=== PATIENT | female | born 1970 | race Caucasian/White ===

== ENCOUNTER → 2020-03-05 15:06 | Outpatient (CLI) | payer OTHER, SELFPAY ==
[2020-03-07 13:57] LABS: Cancer Antigen 125 37.3 U/mL (0.0-38.1)
== END ==
PROVIDERS: Visit Provider Obstetrics & Gynecology
DX: R19.00 Intra-abdominal and pelvic swelling, mass and lump, unspecified site (principal)
CPT/HCPCS: 36415; 86304

== ENCOUNTER 2020-03-12 08:49 | Inpatient (IN) | payer SELFPAY, OTHER ==
--- NOTE | 2020-03-11 17:41 | HP.PCM_ITS ---
History and Physical Date of Admission: 03/12/20 Surgical History and Physical Halie Carmen, a 50 year old female 3 0 1 0 3, presents for MAURO/BSO on 03/12/2020 at 11 :00. -- Large Pelvic Mass -- Halie is here as ref from Dr. Carlie Smyth for pelvic mass. Has been menopausal for over 1 year. Had what she believed to be her cycle in 01-12. Then in 02-11 had severe abdominal pain RLQ. Saw her PCP at that time. She is . Full term pregnancies. Has never had abdominal surgery other than c-sec x1. Pain at this time is a 1 but has been more severe and episodic. Does have constant fullness or pressure as she described. No allergies and on no medications except vitamin supp. Lower right quad pain which began 2 months ago. Halie claims it started suddenly and has been present 2 months. It is located in the RLQ of the abdomen. Halie characterizes the quality pressure. Severity is worsening; Associated signs and symptoms are lower back pain. U/S shows about 1/3 with some moderate complexity in likely cystic ovary but CA-125 in benign range(37). MEDICATIONS HISTORY: ALLERGIES: No Known Drug Allergies Infections - Chicken pox Illnesses - none Accidents - None Review of Systems: GENERAL - Denies fever, or chills SKIN - Denies skin changes EYES - wears eye glasses EARS - Denies difficulty hearing NOSE - Denies nasal congestion or bleeding MOUTH - Denies sore throat or difficulty swallowing NECK - Denies pain or swelling RESPIRATORY - Denies shortness of breath or wheezing CARDIOVASCULAR - Denies palpitations or chest pain GASTROINTESTINAL - Denies nausea, vomiting, diarrhea, constipation GENITOURINARY - Denies dysuria, frequency of urination, incontinence of urine MUSCULOSKELETAL - Denies joint or muscle pain NEUROLOGICAL - Denies localized numbness or weakness PSYCHIATRIC - Denies depression or anxiety ENDOCRINE - Denies heat or cold intolerance, weight loss or gain HEMATO-IMMUNOLOGIC - Denies excessive bleeding with cuts SOCIAL HISTORY: Alcohol Use - denies drinking Smoking - Never Diet - no special diet Exercise - active Employer - homemaker Illicit Drug Use - None Spouse-Sig Other Name - Kenneth Control - postmenopausal FAMILY HISTORY: MENSTRUAL HISTORY: LMP Known?- Postmenopausal PAST PREGNANCIES: Total Pregnancies - 4; Full Term Pregnancies - 3; Premature - 0; Abortions, Induced - 0; Abortions, Spontaneous - 1; Ectopics - 0; Multiple Births - 0; Living Children - 3 SURGICAL HISTORY: 1. 1994 ; - malpresentation PHYSICAL EXAM BP- 142/76 Sitting, Right arm, regular cuff Weight- 223.15258 lbs Height- 65 inch BMI:37.19 CONSTITUTIONAL - NAD, well nourished, and well developed ABDOMEN - Without hepatosplenomegaly, distention, masses, rebound, or guarding; normal bowel sounds; no hernias NEUROLOGICAL - Cranial nerves II-XII grossly intact PSYCHIATRIC - A and O to time, place, person, mood and affect External Genital Vagina - non-tender without lesions Urethra/Urethral Meatus - non-tender Bladder - non-tender Vagina - vaginal oliveira are pink and moist without loss of rugae and no evidence of atropy Cervix - without cervical motion tenderness and has normal size and features without evident lesions Uterus - 22 cm sized uterus slightly tender trails slightly to left Adnexa - large pelvic mass ASSESSMENT/PLAN: 1. Generalized Intra-abdominal And Pelvic Swelling, Mass And Lump Large. CA-125 ok. U/S shows mostly cystic with some areas of complexity. Since CA-125 in benign range will proceed with MAURO/BSO. Discussed need for midline incision despite prior Pfannensteil incision with her prior C- section. Discussed RBAs and all questions answered. Suspicious for intermittent torsion.
[2020-03-12] VITALS (11 sets, daily range): BP systolic 122–137; BP diastolic 68–76; PULSE 59–73; RESP 14–18; TEMP 36.1–37.2; O2SAT 93–99; BMI 34.6
--- NOTE | 2020-03-12 | HYST_PTH ---
PATIENT: CRISSY PANTOJA LOC: [facility] U#:[id number] AGE/SX: 50/F ROOM: OH317 RE03/12/[address]: Dr. Emanuel Roberts MD : [id number] BED: 1 DIS: 03/13/2020 SPEC #: [id number] RECD: 03/12/20 13:16 STATUS: NAHEED DE SOUZABrigitte #: [id number] MIESHA: 03/12/20 00:[address]: Emanuel Roberts DEPT: SURGICAL PATHOLOGY RECD BY: Tiki Jauregui ENTERED: 03/12/20 13:50 SP TYPE: HYSTERECT OTHR DR: Cheli Smyth, STORE HOST-C Tissues: A - Right ovary B - Uterus, NOS Procedures: Frozen Section (charge) Frozen Section Add'l ([facility]) Surgery Specimen Level V HEADER OPERATION: ERAS, hysterectomy, MAURO, bilateral salpingectomy, right oophorectomy PRE-OP DIAGNOSIS: Generalized intra-abdominal and pelvic swelling, mass and lump TISSUE SUBMITTED: A - Right ovary, FS, B - Uterus, left fallopian tube FROZEN SECTION DIAGNOSIS A. Right ovary, oophorectomy: Multiloculated ovary with hemorrhagic infarction. AM:ketih 03/12/2020 Case has been reviewed in consultation with Dr. De Jesus who concurs with the above diagnosis. IDC:FADUMO MICROSCOPIC DIAGNOSIS A. Right ovary, oophorectomy: Multiloculated benign cystic ovary with hemorrhagic infarction, consistent with torsion. Negative for malignancy. See comment. B. Uterus, left fallopian tube and portion right adnexa: Cervix - chronic inflammation. Endometrium - inactive endometrium. Myometrium - intramural leiomyomas. Left fallopian tube - no pathologic diagnosis. Right adnexa - Hemorrhagic tissue with focal reactive changes. FADUMO:keith 03/14/2020 COMMENT A. The specimen also shows focal area of old hemorrhage, foreign body giant cell reaction and calcification. Obvious right fallopian tube is not identified either specimen A or B. This case is discussed with Dr. Roberts on 03/14/20. MICROSCOPIC DESCRIPTION Slides are reviewed. GROSS DESCRIPTION A - Received fresh for frozen section diagnosis labeled with the patient's name is a specimen designated right ovary. The specimen consists of a markedly enlarged cystic, congested ovary weighing 1089 gm and measuring 17 x 15 x 10 cm. The external surface is smooth and inked black. Sections reveal the entire ovary is replaced by multiple fluid-filled cysts filled with hemorrhagic fluid. The cyst wall measures from 0.5 to 1 cm in thickness. Three frozen sections are done. Trapeze Artist sections are submitted in ten cassettes. Cassettes 1-3 contain the frozen sections. B - Received in fixative is one container labeled with the patient's name. The specimen consists of a hysterectomy specimen consisting of uterus with cervix, attached left fallopian tubes and portion of right adnexa. The uterus with cervix weighs 118 gm and measures 10 x 6 x 4.5 cm. The serosal surface is congested. The ectocervical mucosa is also congested. The external os is slit-like in contour. The endocervical canal measures 3.5 cm in length and the endocervical mucosa is lema, glistening and unremarkable. The triangular endometrial cavity measures 5 cm in length and 1.5 cm in width. The endometrium is lema, glistening without any mass lesion and measures <0.1 cm in thickness. Section of the uterine wall reveal multiple nodular masses, largest measuring 1.0 cm in greatest dimension. Uninvolved uterine wall measures up to 2.5 cm in greatest dimension. The left fallopian tube measures 5 cm in length and 0.5 cm in diameter. The fimbrial end is identified. Sections reveal unremarkable cut surfaces. The right adnexa shows hemorrhagic tissue which measures 2.5 x 2 x 2 cm. Sections reveal congested and hemorrhagic cut surfaces. No cysts are identified. Trapeze Artist sections are submitted in 11 cassettes as follows: 1 - anterior cervix, 2 - posterior cervix, 3 & 4 - posterior uterine wall, 5 & 6 - anterior uterine wall, 7 - nodular masses, 8 - left fallopian tube, 9 to 11 - right adnexa, hemorrhagic tissue. / FADUMO:keith 03/13/20 TC:5 CPT: 82875 x2, 87288, 99318 x2
--- NOTE | 2020-03-12 10:04 | EKG12_ITS ---
Test Reason : PREOP Blood Pressure : / mmHG Vent. Rate : 068 BPM Atrial Rate : 068 BPM P-R Int : 182 ms QRS Dur : 102 ms QT Int : 412 ms P-R-T Axes : 041 -43 -06 degrees QTc Int : 438 ms Normal sinus rhythm Left axis deviation Septal infarct , age undetermined Abnormal ECG No previous ECGs available Confirmed by LILIANA RIVERA, CAILIN ([id number]), society editor LIANG HAYES ([id number]) on 03/20/2020 12:26:38 PM Referred By: Emanuel Roberts Confirmed By:CAILIN FORD MD
[2020-03-12 10:12] LABS: Hematocrit 36.9 % (37-47); Hemoglobin 12.2 g/dL (12.0-15.0); Mean Corp Hgb Conc 33.1 g/dL (32-36); Mean Corpuscular Volume 90.7 fL (81-99); Mean Platelet Vol. 8.6 fl (6.2-12.0); Platelet Count 365 K/mm3 (150-450); RBC Distribution Width CV 12.3 % (11.6-14.6); RBC Distribution Width SD 40.4 fl (35.1-43.9); Red Blood Count 4.07 M/mm3 (4.2-5.4); White Blood Count 9.3 K/mm3 (4.4-11.0)
[2020-03-12] MEDS: Lactated Ringers 1,000 ML 100 ML IV (10:14)
[2020-03-12 10:24] LABS: International Normalized Ratio 1.1; Partial Thromboplast Time 28.9 Seconds (24.1-36.2); Prothrombin Time (Protime)PT. 13.4 SECONDS (11.7-14.9)
[2020-03-12 10:31] LABS: ALB/GLOB Ratio 0.8 RATIO (0.9-2.4); AST(SGOT) 13 U/L (15-37); Alanine Aminotransfer ALT/SGPT 17 U/L (13-56); Albumin, Serum 3.6 g/dL (3.2-5.0); Alkaline Phosphatase 87 U/L (45-117); Anion Gap 5 (5-15); BUN 14 mg/dL (7-18); BUN/Creat Ratio 19.8 RATIO (10-20); Calcium,Total 9.4 mg/dL (8.5-10.1); Chloride 106 mmol/L (98-107); Creatinine, Serum 0.71 mg/dL (0.55-1.02); EST Glomerular Filtration Rate 92 mL/min (>60); Est Glom Filt Rate - Afr Amer 112 mL/min (>60); Estimated Creatinine Clearance 90.13 ml/min; Globulin 4.6 g/dL (2.2-4.2); Glucose 96 mg/dL (74-106); Protein, Total 8.2 g/dL (6.4-8.2); Sodium Level 139 mmol/L (136-145)
[2020-03-12] MEDS: Cefotetan 2 GM in 0.9% NS 100 ML IV (12:45)
--- NOTE | 2020-03-12 12:45 | OP.PCM_ITS ---
Report of Operation Date of Procedure: 03/12/20 Pre-Operative Diagnosis: Pelvic Mass Post-Operative Diagnosis: Right Ovarian Torsion Surgery/Procedure Performed:: Total Abdominal Hysterectomy and Bilateral Salpingectomy, Right Oophorectomy Description of Surgical Findings:: Approximate 20 cm right ovarian cyst with torsion evident given darkened and necrotic appearing areas. 6 to 7 cm size uterus. Normal-appearing left fallopian tube and ovary. Frozen section pathology showed a a right ovary with cystic and necrotic tissue from a right ovarian torsion, no evidence of malignancy. Omentum and small bowel mildly adherent to the necrotic cyst. mortar mixer operator: Ninoska German Type of Anesthesia:: General - Endotracheal Anesthesiologist: Yanick Carroll Specimen's removed: Uterus and bilateral fallopian tubes and right torsed ovary Drains: Sutherland to straight drain Estimated Blood Loss (mL): 250 cc Fluids Replaced: Crystalloid Description of Procedure: Surgeon: Emanuel Roberts MD, FACOG Indications: This is a 50-year-old patient who his been having problems with a large pelvic mass. Ultrasound suggests that this is her right ovary which may be intermittently torsed. She has had minimal pain. Ca-125 was 37 so this was believed to be a benign process. Given this the patient desires that we proceed with the above procedure. She has been counseled regarding the risks and indications of this procedure including the possibility of bleeding, infection, and injury to surrounding structures such as bowel bladder. She would also like preservation of ovarian function if this is possible but understands that if both ovaries are removed that she will need to be on hormone replacement therapy for an indefinite period of time. All questions were answered and we consider the patient well-informed. Procedure: Patient was taken to the operating room where after induction of general anesthesia she was prepped and draped in the usual sterile fashion. A Sutherland catheter was placed. The abdomen was entered through a midline incision and peritoneal cavity was entered bluntly. Sierra retractor was placed. The large cystic right ovary was easily and bluntly from omentum and small bowel and delivered; right infundibulopelvic ligament was ligated; the specimen was sent to pathology for frozen section and eventually returned a diagnosis of necrotic ovary consistent with torsion with no evidence of malignancy present. Round ligaments were identified and ligated with 0 Vicryl suture. Left mesosalpinx was ligated and after developing a bladder flap from the edematous tissue, progressive bites were then taken down on either side of the uterine cervix ligating each pedicle with 0 Vicryl suture. Final bites across the vaginal cuff incorporated the uterosacral ligaments into the vaginal cuff using 0 Vicryl suture; multiple [id number] sutures were placed across the vaginal cuff. Vaginal cuff and pelvic sidewall pedicles were oversewn where necessary to achieve hemostasis. Urine remained clear throughout the case. Pelvis was copiously irrigated removing all clot. Jae was used to help with postoperative hemostasis due to some oozing. [place] retractor was removed and fascia was closed with running loop PDS. Subcutaneous tissue was copiously irrigated with saline solution before closing with running 3-0 Vicryl suture. 3-0 Vicryl suture was then used in an interrupted fashion to reapproximate skin edges and 4-0 Monocryl suture was used in running fashion to reapproximate skin edges. Steri-Strips were placed across the incision followed by Mepilex and an abdominal binder. Patient tolerated the procedure well was taken to recovery room in satisfactory condition; sponge instrument and needle counts were all reportedly correct. Estimated blood loss for the case was 100 cc. Cefotan g IV was given prior to beginning the operative procedure. There were no apparent complications of the surgery. Specimen to pathology was uterus and bilateral fallopian tubes and right ovary. Grafts/Implants Used: None - Complications None - Admit VTE Documentation VTE Present on Admission: Yes VTE Mechan Device Prophylaxis: SCD's VTE Pharm Prophylaxis ordered?: Yes
--- NOTE | 2020-03-12 14:35 | DCINST_ITS ---
Discharge Diet: No Restrictions Discharge Activity: Return to Normal Activity, May Not Drive - while taking narcotic pain medications., May Shower, May Take a Tub Bath May resume sexual activity in: 6-8 weeks Call your doctor if your incision/area has: Continuous Slow Oozing, Sudden Inc reased Bleeding, Increased Pain/ Swelling, Increased Redness, Foul Smelling Discharge Call your doctor if you observe: Fever of 101 or Higher, Inability to urinate, Inability to have a bowel movement, Using more than one pad per hour Allergies/Adverse Reactions: Allergies No Known Allergies Allergy (Verified 03/12/20 09:59) Medications to take at Discharge RX: Multivitamin 1 ea PO DAILY 03/09/20 Docusate Sodium [Colace] 100 mg PO BID PRN PRN #60 cap 03/12/20 RX: Oxycodone [Oxyir] 5 mg PO Q6H PRN PRN 7 Days #20 tab 03/12/20 The following prescriptions were given: Docusate Sodium [Colace] 100 mg PO BID PRN PRN #60 cap PRN Reason: Constipation Transmission Status: Received by [facility] RX: Oxycodone [Oxyir] 5 mg PO Q6H PRN PRN 7 Days #20 tab PRN Reason: Pain Score 6-10 Transmission Status: Received by [facility] Primary Care Physician: Cheli Smyth [employer] [Primary Care Provider] - Test Results: Test results from this visit will be discussed in further detail at your follow- up appointment, if applicable. Please Follow Up With: Emanuel Roberts MD When: 2 to 3 weeks
[2020-03-12] MEDS: Acetaminophen 500 MG Tablet 1000 MG PO (18:37)
[2020-03-12] MEDS: Ketorolac 30 MG/ML Syringe IV (18:37)
[2020-03-12] MEDS: Lactated Ringers 1,000 ML 150 ML IV (18:53)
[2020-03-12] MEDS: Enoxaparin 30 MG/0.3 ML Syringe SC (20:44)
[2020-03-12] MEDS: Docusate Sodium 100 MG Capsule PO (20:45)
[2020-03-13] MEDS: 0.9% Saline Lock 10 ML Syringe IV ×4 (00:16→17:34)
[2020-03-13] MEDS: Ketorolac 30 MG/ML Syringe IV ×4 (00:16→17:33)
[2020-03-13] MEDS: Acetaminophen 500 MG Tablet 1000 MG PO ×3 (00:17→12:08)
[2020-03-13] MEDS: Lactated Ringers 1,000 ML 150 ML IV (01:20)
[2020-03-13 02:30] VITALS: BP 117/60; PULSE 62; RESP 16; TEMP 36.9; O2SAT 96
[2020-03-13 06:11] LABS: Hematocrit 33.7 % (37-47); Hemoglobin 11.2 g/dL (12.0-15.0); Mean Corp Hgb Conc 33.2 g/dL (32-36); Mean Corpuscular Hgb 29.7 pg (27.0-32.0); Mean Corpuscular Volume 89.4 fL (81-99); Mean Platelet Vol. 8.7 fl (6.2-12.0); Platelet Count 336 K/mm3 (150-450); RBC Distribution Width CV 12.2 % (11.6-14.6); Red Blood Count 3.77 M/mm3 (4.2-5.4); White Blood Count 11.9 K/mm3 (4.4-11.0)
[2020-03-13 06:33] LABS: Creatinine, Serum 0.74 mg/dL (0.55-1.02); EST Glomerular Filtration Rate 88 mL/min (>60); Est Glom Filt Rate - Afr Amer 107 mL/min (>60); Estimated Creatinine Clearance 86.48 ml/min
--- NOTE | 2020-03-13 08:03 | PCM.PN.OB ---
Subjective: Patient without complaints. Tolerating diet well. Positive flatus. Minimal vaginal bleeding. Pain is well controlled. Wants to go home later today if she is able to void on her own. Objective: Wound is clean, dry, intact with some bruising noted but Mepilex dressing is without stains. Good urine output. Hemoglobin and creatinine okay. - Physical Exam Vitals/I&O's: Vital Signs Temp Pulse Resp BP Pulse Ox 98.5 F 62 16 117/60 96 03/13/20 02:30 03/13/20 02:30 03/13/20 02:30 03/13/20 02:30 03/13/20 02:30 Oxygen Flow Rate (L/min) 2 Oxygen Delivery Method Room Air Weight: 221 lb 1.978 oz Body Mass Index (BMI) 34.6 Intake and Output for Last 24 Hours 03/11/20 03/12/20 03/13/20 23:59 23:59 23:59 Intake Total 1100 / 1300 1407.5 / 1407.5 Output Total 475 / 975 900 / 900 Balance 625 / 325 507.5 / 507.5 Microbiology Past 72 Hours 03/12/20 09:20 Interface Orders SARS-CoV-2 Antigen (Rapid) - Final Laboratory Results 03/12/20 09:50: WBC 9.3, RBC 4.07 L, Hgb 12.2, Hct 36.9 L, MCV 90.7, MCH 30.0, MCHC 33.1, RDW Std Deviation 40.4, RDW Coeff of Vlad 12.3, Plt Count 365, MPV 8.6 03/12/20 09:50: PT 13.4, INR 1.1, APTT 28.9 03/12/20 09:50: Sodium 139, Potassium 4.0, Chloride 106, Carbon Dioxide 28.0, Anion Gap 5, BUN 14, Creatinine 0.71, Estim Creat Clear Calc 90.13, Est GFR (MDRD) Af Amer 112, Est GFR (MDRD) Non-Af 92, BUN/Creatinine Ratio 19.8, Glucose 96, Calcium 9.4, Total Bilirubin 0.50, AST 13 L, ALT 17, Alkaline Phosphatase 87, Total Protein 8.2, Albumin 3.6, Globulin 4.6 H, Albumin/Globulin Ratio 0.8 L 03/12/20 09:50: Blood Type A NEGATIVE, Antibody Screen NEGATIVE 03/13/20 05:52: Creatinine 0.74, Estim Creat Clear Calc 86.48, Est GFR (MDRD) Af Amer 107, Est GFR (MDRD) Non-Af 88 03/13/20 05:52: WBC 11.9 H, RBC 3.77 L, Hgb 11.2 L, Hct 33.7 L, MCV 89.4, MCH 29.7, MCHC 33.2, RDW Std Deviation 40.0, RDW Coeff of Vlad 12.2, Plt Count 336, MPV 8.7 Current Medications Acetaminophen (Acetaminophen 500 Mg Tablet) 1,000 mg PO Q6 [facility] Last Admin: 03/13/20 05:56 Dose: 1,000 mg Documented by: Docusate Sodium (Docusate Sodium 100 Mg Capsule) 100 mg PO BID [facility] Last Admin: 03/12/20 20:45 Dose: 100 mg Documented by: Lactated Ringer's () 1,000 mls @ 150 mls/hr IV .[id number] [facility] Stop: 03/13/20 16:16 Last Admin: 03/13/20 01:20 Dose: 150 mls/hr Documented by: Sodium Chloride () 250 mls @ 15 mls/hr IV .[id number] PRN PRN Reason: Saline Flush Sodium Chloride () 250 mls @ 15 mls/hr IV .[id number] PRN PRN Reason: Additional IVPB Infusion Ketorolac Tromethamine (Ketorolac 30 Mg/Ml Syringe) 30 mg IV Q6 [facility] Stop: 03/14/20 00:01 Last Admin: 03/13/20 05:58 Dose: 30 mg Documented by: Magnesium Chloride (Magnesium Chloride 64 Mg Delay Rel.Tablet) 128 mg PO DAILY PRN PRN PRN Reason: Constipation Nutritional Formula (Lactose Free) (Ensure Enlive 120 Ml Liquid) 120 ml PO TIDCM [facility] Last Admin: 03/12/20 18:52 Dose: Not Given Documented by: Ondansetron HCl (Ondansetron Odt 4 Mg Tablet) 4 mg PO Q6H PRN PRN PRN Reason: NAUSEA Sodium Chloride (0.9% Saline Lock 10 Ml Syringe) 10 - 40 ml IV UD PRN PRN Reason: SALINE FLUSH Last Admin: 03/13/20 05:58 Dose: 10 ml Documented by: Medical Necessity - Tobacco Use Smoking Status: Never smoker Tobacco Use: Non-smoker Assessment/Plan Doing well postoperative day #1 status post total abdominal hysterectomy, right salpingo-oophorectomy, left salpingectomy. Will discharge home later today if tolerating diet well and able to void on own.
[2020-03-13 08:57] VITALS: BP 103/54; PULSE 60; RESP 16; TEMP 36.7; O2SAT 95
[2020-03-13 09:00] VITALS: PULSE 60
[2020-03-13] MEDS: Docusate Sodium 100 MG Capsule PO (09:04)
--- NOTE | 2020-03-13 10:25 | CASEMGMT ---
RN CM Face to Face with patient for initial transition planning/care coordination assessment. RN CM introduced self and role at [facility]. Patient sitting in chair, alert and oriented. Patient willing to participate in assessment and is able to answer all questions appropriately. Care providers, pharmacy, and demographics verified. Patient wishes to discharge home, denies need for home health at this time. Patient states she has no further needs or concerns at this time. CM to follow for discharge planning needs that may arise. PCP: Cheli Smyth [facility] Specialists: BAM Roberts [facility] Insurance: [employer] Prescription Benefit: [employer] Living Will/HPOA: none LNOK: Living Arrangements: Patient lives with in a 2 story home with bed and bath on the first floor. Patient states she is independent at home. Transportation: Driving service DME/HHC: Patient states she has a walker at home. Patient denies previous HHC. Disposition Plan: Patient to discharge home with family support and follow-up plans in place. Anisa HERRERA, RN, CM
--- NOTE | 2020-03-13 11:55 | PHA.DC.MC ---
Pharmacy Service has performed discharge medication reconciliation and counseling for this patient. The patient was counseled on the following discharge medications and changes in medications for homegoing were reviewed. The Reason for Use, instructions for use, and potential side effects were reviewed for all new medications. 1. OXYCODONE 2. DOCUSATE The patient's questions regarding all of their medications were answered. The patient was able to verbally demonstrate an understanding of their discharge medications. Home Medications Multivitamin 1 ea PO DAILY 03/09/20 Docusate Sodium [Colace] 100 mg PO BID PRN PRN #60 cap 03/12/20 Oxycodone [Oxyir] 5 mg PO Q6H PRN PRN 7 Days #20 tab 03/12/20 The patient's discharge medication list was reviewed for discrepancies and discrepancies were resolved.
[2020-03-13 14:13] VITALS: BP 105/48; PULSE 71; RESP 18; TEMP 36.9; O2SAT 99
== END 2020-03-13 18:50 | disposition home or self-care (01) | DRG 743 ==
LOC: ACINP 13:21 → MS3 14:26
PROVIDERS: Admitting Provider Obstetrics & Gynecology; PCP Nurse Practitioner Family; Referring Provider Obstetrics & Gynecology; Visit Provider Obstetrics & Gynecology
PROC: 0UT90ZZ Resection of Uterus, Open Approach (ICD-10-PCS; CPT 58150; principal; 2020-03-12 10:45)
DX: N83.511 Torsion of right ovary and ovarian pedicle (principal); N83.201 Unspecified ovarian cyst, right side
CPT/HCPCS: 80053; 82565; 85027; 85610; 85730; 86850; 86900; 86901; 87426; 88305; 88307; 88331; 88332; 93005; 99251; J7120; A4216; G0463; J2405

== ENCOUNTER → 2020-03-27 17:30 | Outpatient (CLI) | payer OTHER, SELFPAY ==
[2020-03-12 16:16] VITALS: BMI 34.6
== END ==
PROVIDERS: PCP Nurse Practitioner Family; Referring Provider Obstetrics & Gynecology; Visit Provider Obstetrics & Gynecology
DX: N39.0 Urinary tract infection, site not specified (principal)
CPT/HCPCS: 87070; 87086; 87088; 87205